=== PATIENT | male | born 1950 | race Caucasian/White ===

== ENCOUNTER 2021-12-27 14:08 | Outpatient (CLI) | payer MEDICARE | END 2021-12-27 14:09 | disposition home or self-care (01) | LOC: BICCT 14:08 | PROVIDERS: ATTEND Family Medicine | DX: Z12.2 Encounter for screening for malignant neoplasm of respiratory organs (principal); F17.210 Nicotine dependence, cigarettes, uncomplicated | CPT/HCPCS: 71271 ==

== ENCOUNTER 2023-07-05 10:05 | Outpatient (CLI) | payer MEDICARE | END 2023-07-05 10:06 | disposition home or self-care (01) | LOC: BICRAD 10:05 | PROVIDERS: ATTEND Family Medicine | DX: S92.322A Displaced fracture of second metatarsal bone, left foot, initial encounter for closed fracture (principal); Q66.212 Congenital metatarsus primus varus, left foot; M85.872 Other specified disorders of bone density and structure, left ankle and foot ==

== ENCOUNTER 2024-02-20 09:58 | Outpatient (CLI) | payer MEDICARE | END 2024-02-20 09:59 | disposition home or self-care (01) | LOC: SCSMRI 09:58 | PROVIDERS: ATTEND Family Medicine | DX: G25.2 Other specified forms of tremor (principal); I67.82 Cerebral ischemia; R90.82 White matter disease, unspecified | CPT/HCPCS: 70553; 76376 ==

== ENCOUNTER 2024-04-02 08:22 | Outpatient (CLI) | payer MEDICARE | END 2024-04-02 10:00 | disposition home or self-care (01) | LOC: NM 08:22 | PROVIDERS: ATTEND Family Medicine | DX: G25.2 Other specified forms of tremor (principal) | CPT/HCPCS: 78803; A9584 ×2 ==